=== PATIENT | male | born 1990 | race Two or more races ===

== ENCOUNTER 2022-06-09 12:53 | Emergency (ER) | payer MEDICAID ==
[2022-06-09] MEDS ORDERED: Ketorolac 60 MG/2 ML SDV IM ONE (13:18)
[2022-06-09] MEDS ORDERED: HYDROmorphone 0.5 MG/0.5 ML Syringe IM ONE (13:18)
== END 2022-06-09 15:36 | disposition home or self-care (01) ==
LOC: JD.ED 12:53
DX: S82.51XA Displaced fracture of medial malleolus of right tibia, initial encounter for closed fracture (principal); W17.89XA Other fall from one level to another, initial encounter
CPT/HCPCS: 29125; 73610; 73630; 96372; 99283; J1885